=== PATIENT | male | born 1995 | race Two or more races ===

== ENCOUNTER 2024-12-15 15:57 | Emergency (ER) | payer MEDICAID, SELFPAY ==
[2024-12-15 16:31] VITALS: BP 118/77; PULSE 75; RESP 20; TEMP 37; O2SAT 98; BMI 29.5
--- NOTE | 2024-12-15 16:50 | XR_ITS ---
Examination: Tibia-Fibula, right , 2 views Technique: Tibia-fibula AP lateral 2 views Date and time of exam: December 15, 2024, 1741 hrs. Indications: Injury to the right lower leg yesterday, lower leg pain. Findings: No acute fracture. No dislocation. No foreign body Impression: No acute fracture.
--- NOTE | 2024-12-15 16:50 | XR_ITS ---
Examination: Right knee 3 views Technique: Knee AP, lateral, oblique 3 views Date and time of exam: December 14 9992024, 1741 hrs. Indications: Injury to the knee one day ago, knee pain. Findings: No fracture or dislocation. No foreign body Impression: No fracture or dislocation.
[2024-12-15] MEDS: HYDROcodone/APAP 5/325 TABLET 1 TAB PO (17:02)
[2024-12-15] MEDS: KETOROLAC INJ 60 MG/2 ML VIAL 30 MG IM (17:03)
--- NOTE | 2024-12-15 17:29 | PD.EDFALL ---
ED Fall Injury RME/HPI General Chief Complaint: Fall Stated Complaint: R KNEE PAIN/BRUISING S/P FALL Time Seen by Provider: 12/15/24 16:00 Arrival date/time: 12/15/24 15:57 Limitations: no limitations RME / HPI RME / HPI Narrative: 28-year-old male here for injury that he sustained yesterday while watching a baseball game. States was sitting on the bleachers and did not notice a the bleachers narrow down. These tarps were obstructing his view he shifted over to the right and ended up rolling. History of right knee trauma in the past with internal derangement. States that makes him more worried especially given the size of the bruise on his right inner leg and tenderness to the knee as well as tenderness to right lateral thigh. Able to walk but limping. No other injuries. No loss of consciousness. Related Data Previous Rx's ?Medication ?Instructions ?Recorded cyclobenzaprine 10 mg tablet 10 mg PO Q8HR #20 tabs 05/28/17 ibuprofen 600 mg tablet 600 mg PO Q6HR #30 tabs 05/28/17 Allergies Allergy/AdvReac Type Severity Reaction Status Date / Time No Known Allergies Allergy Verified 12/15/24 15:57 Review of Systems Review of Systems Systems Reviewed: All systems reviewed, normal except as documented Musculoskeletal Musculoskeletal: Reports as per HPI ED Exam General Limitations: Present no limitations General appearance: Present alert and in no apparent distress Eye Eye exam: Present normal appearance, PERRL and EOMI Respiratory Respiratory exam: Present normal lung sounds bilaterally Cardiovascular Cardiovascular exam: Present regular rate, normal rhythm and normal heart sounds Abdominal Exam Abdominal exam: Present soft and normal bowel sounds Extremities Exam Extremities exam: Present other (Right lateral thigh with ecchymosis and TTP right medial calf with greater than 6 cm area of ecchymosis and TTP right knee with TTP, limping gait) Back Exam Back exam: Present normal inspection and full ROM Skin Skin exam: Present warm, dry, intact and normal color Course Quality Measures none Orders Category Date Time Status Splint / Immobilizer STAT Care 12/15/24 17:57 Completed XR knee RT 3V Stat Exams 12/15/24 16:50 Completed XR tibia fibula RT 2V Stat Exams 12/15/24 16:50 Completed HYDROcodone*/APAP 5/325 [[place] 5/325] Med 12/15/24 16:50 Discontinued 1 tab PO X1 ONE Ketorolac Inj [Toradol Inj] Med 12/15/24 16:50 Discontinued 30 mg IM X1 ONE Vital Signs Vital signs: Vital Signs Temperature 98.6 F 12/15/24 16:31 Pulse Rate 75 12/15/24 16:31 Respiratory Rate 20 12/15/24 16:31 Blood Pressure 118/77 12/15/24 16:31 Pulse Oximetry (%) 98 12/15/24 16:31 Oxygen Delivery Method Oxy Mask 12/15/24 16:31 PROCEDURES: Splint Fabrication: Pre-Fabricated Type: Other (right knee immobilizer ) Reason for Splint: Pain Management Site condition: Bruised Circulation Distal to Splint: Yes Movement Distal to Splint: Yes Senation Distal to Splint: Yes Tolerance: Tolerates Well Fall Patient data External records reviewed:: [facility] previous records Clinical information provided by:: patient Social determinants that could affect healthcare access:: other (specify) Patient has the following chronic illnesses:: History of right knee injury How is presenting disease/condition affected by chronic disease/condition?: exacerbated by Evaluation data The following diagnostics were reviewed and interpreted by me:: radiology exam(s) Lab and/or radiology exams considered but not ordered:: us doppler right lower ext, however injury less than 24hrs unlikely to change course of tx today Interpretation Summary: no fx no dislocation of knee or tib/fib Medications / Prescriptions Medications or Prescriptions considered but not ordered:: narcotics consider but opted for nsaids due to type of injury Medication administrations:: Medication Administration History Discontinued Medications Hydrocodone Bitart/Acetaminophen (Hydrocodone/Apap 5/325 Tablet) 1 tab PO X1 ONE Stop: 12/15/24 16:51 Last Admin: 12/15/24 17:02 Dose: 1 tab Documented By: HERBERT Ketorolac Tromethamine (Ketorolac Inj 60 Mg/2 Ml Vial) 30 mg IM X1 ONE Stop: 12/15/24 16:51 Last Admin: 12/15/24 17:03 Dose: 30 mg Documented By: HERBERT see above Consultations Consultation(s) initiated? (list below): No Diagnosis Fall Differential Diagnosis: dislocation of shoulder region, fracture of wrist, compression fracture and other (tib/fib fx, dvt) Most likely diagnosis given after review of the tests above:: right knee contusion right lower ext contusions Admission Indicated Admission indicated?: not indicated Admission Request Was there a request for admission?: No Disposition Plan Disposition Plan: Discharge Discharge Attestation Discharge Attestation: The patient and all family members were given an opportunity to ask questions and understood the discharge instructions. Discharge instructions specifically effects, indications for sooner follow up or return to the emergency department, and the expected course of current diagnosis. Patient condition: Stable Discharge Plan Plan Patient Disposition: HOME (Self Care) Discharge Disposition comment: f/u with pcp in 2-3days Prescriptions/Referrals Prescriptions/Med Rec: No Action ibuprofen 600 mg tablet 600 mg PO Q6HR Qty: 30 0RF cyclobenzaprine 10 mg tablet 10 mg PO Q8HR Qty: 20 0RF Referrals: No Primary/Family,Physician [Primary Care Provider] - In 1 week Problem List Clinical Impression: Contusion of leg, right, multiple sites, Ecchymosis Patient/Caregiver Discharge Instructions Education Materials: Bruises (Contusions), ED Contusion, Lower Extremity Print Language: [place] Stand Alone Forms: Katharine Award Info., Work/School Release, Patient Portal Info Letter PA/INCLUSION INTERN Supervising Physician PA/INCLUSION INTERN Supervising Physician: Dr. ro
== END 2024-12-15 18:13 | disposition home or self-care (01) ==
PROVIDERS: Emergency Provider Family Medicine
DX: S80.11XA Contusion of right lower leg, initial encounter (principal); X58.XXXA Exposure to other specified factors, initial encounter
CPT/HCPCS: 73562; 73590; 96372; 99283; J1885; A9270

== ENCOUNTER 2024-12-21 10:28 | Emergency (ER) | payer MEDICAID, SELFPAY ==
[2024-12-21 10:30] VITALS: BMI 28.7
[2024-12-21 11:12] VITALS: BP 137/78; PULSE 71; RESP 18; TEMP 36.6; O2SAT 98
--- NOTE | 2024-12-21 11:19 | XR_ITS ---
Examination: Duplex scan of the lower extremity, unilateral right Date and time of exam: December 21, T2 thousand 25, 11:30 AM. Indications: Right leg swelling and pain beginning 8 days ago. Technique: Duplex scan of the extremity veins using B-mode/grayscale imaging and Doppler spectral analysis and color flow Attention is directed to internal echogenicity, compression and augmentation involving these veins, color flow assessment, spectral analysis Findings: Major deep venous structures in the extremity demonstrate normal course and caliber. There is no evidence of deep vein thrombosis. Normal color flow and spectral analysis Impression: Negative for DVT..
--- NOTE | 2024-12-21 14:12 | PD.EDLOWEX ---
Lower Extremity Injury RME/HPI General Chief Complaint: Extremity Injury, Lower Stated Complaint: BRUISING/SWELLING TO RIGHT S/P FALL 8 DAYS AGO Time Seen by Provider: 12/21/24 11:11 Arrival date/time: 12/21/24 10:28 This is a 28-year-old male that comes in to the ED with complaints of leg swelling. Pt states this happened while watching a baseball game. States was sitting on the bleachers and did not notice a the bleachers narrow down. These tarps were obstructing his view he shifted over to the right and ended up rolling. History of right knee trauma in the past with internal derangement. No other injuries. No loss of consciousness. Pt had x rays done 12/15/24 and were negative to for an acute fracture, he is just concerned he may have a blood clot now. Pt ambulatory on leg. Related Data Previous Rx's ?Medication ?Instructions ?Recorded cyclobenzaprine 10 mg tablet 10 mg PO Q8HR #20 tabs 05/28/17 ibuprofen 600 mg tablet 600 mg PO Q6HR #30 tabs 05/28/17 Allergies Allergy/AdvReac Type Severity Reaction Status Date / Time No Known Allergies Allergy Verified 12/21/24 10:31 Review of Systems Review of Systems Systems Reviewed: All systems reviewed, normal except as documented Past Medical History Past Medical History Comments PMH COMMENT: denies ED Exam Narrative Physical exam: VITAL SIGNS: Reviewed. GENERAL APPEARANCE: Alert and interactive, follows commands, no acute distress HEAD AND FACE: Non-traumatic. ENT: PERRL, conjuctiva pink and clear, eyelid no trauma, Mucous membrane moist. NECK: Supple, nontender, no nuchal rigidity. CHEST: No tenderness, no crepitus, no paradoxical movement, no retractions. LUNGS: breathing even and unlabored HEART: Regular rate, cap refill less than 2 seconds ABDOMEN: Soft, nondistended, no guarding, nontender, no rebound, no masses, NEUROLOGICAL: Gross motor function intact sensory function intact, Appropriate for age. MUSCULOSKELETAL: low back nontender, full range of motion. EXTREMITIES: Distal neurovascular status intact bilateral foot SKIN: Color pink, dry, bruising and mild swelling to right lower extremity in different stages of healing. Full range of motion sensation intact. Good pulses Course Quality Measures none Orders Category Date Time Status US venous doppler LE RT Stat Exams 12/21/24 11:19 Completed Vital Signs Vital signs: Vital Signs Temperature 97.9 F 12/21/24 11:12 Pulse Rate 71 12/21/24 11:12 Respiratory Rate 18 12/21/24 11:12 Blood Pressure 137/78 H 12/21/24 11:12 Pulse Oximetry (%) 98 12/21/24 11:12 Oxygen Delivery Method Room Air 12/21/24 11:12 Extremity Injury, Lower MDM Narrative MDM Narrative:: Venous doppler: Findings: Major deep venous structures in the extremity demonstrate normal course and caliber. There is no evidence of deep vein thrombosis. Normal color flow and spectral analysis Impression: Negative for DVT.. I went to go get patient from the waiting room to give him the results of the Doppler study and he was not there. Dragon dictation: Although this document has been carefully reviewed, there may still be some phonetic and other typographical errors. These errors are purely grammatical due to imperfections in the software program and should not be construed in any way to compromise the substance of the patient's medical care during this visit. Patient data External records reviewed:: [facility] previous records Clinical information provided by:: patient Social determinants that could affect healthcare access:: none Patient has the following chronic illnesses:: none How is presenting disease/condition affected by chronic disease/condition?: no chronic disease Evaluation data The following diagnostics were reviewed and interpreted by me:: radiology exam(s) Lab and/or radiology exams considered but not ordered:: none Interpretation Summary: see note Medications / Prescriptions Medications or Prescriptions considered but not ordered:: none Medication administrations:: see mar Consultations Consultation(s) initiated? (list below): No Diagnosis Extremity Injury, Lower Differential Diagnosis: other (dvt, contusion, leg swelling ) Most likely diagnosis given after review of the tests above:: contusion Admission Indicated Admission indicated?: not indicated Admission Request Was there a request for admission?: No Disposition Plan Disposition Plan: Discharge Discharge Attestation Discharge Attestation: The patient and all family members were given an opportunity to ask questions and understood the discharge instructions. Discharge instructions specifically effects, indications for sooner follow up or return to the emergency department, and the expected course of current diagnosis. Patient condition: Stable Discharge Plan Plan Patient Disposition: Elopement Patient condition on transfer: Stable Prescriptions/Referrals Prescriptions/Med Rec: No Action ibuprofen 600 mg tablet 600 mg PO Q6HR Qty: 30 0RF cyclobenzaprine 10 mg tablet 10 mg PO Q8HR Qty: 20 0RF Referrals: No Primary/Family,Physician [Primary Care Provider] - In 1 week Problem List Clinical Impression: Contusion of lower limb, right Patient/Caregiver Discharge Instructions Discharge Activity: activity as tolerated Education Materials: Bruises (Contusions) Additional Instructions: Follow up with primary provider in 1-2 days. Come back to ED if symptoms change or worsen Print Language: [place]z PA/ENERGY EFFICIENCY ENGINEER Supervising Physician PA/ENERGY EFFICIENCY ENGINEER Supervising Physician: [email or web address]
--- NOTE | 2024-12-21 14:29 | PC.NURSE ---
PT CALLED BACK @[id number]. NO RESPONSE FROM LOBBY OR OUTSIDE
--- NOTE | 2024-12-21 14:53 | PC.LAC ---
PT CALLED BACK X2 @6050. NO RESPONSE FROM LOBBY OR OUTSIDE
--- NOTE | 2024-12-21 15:00 | PC.NURSE ---
CALLED FROM LOBBY AND NO ANSWER
--- NOTE | 2024-12-21 15:00 | PC.NURSE ---
PT CALLED BACK @0818. NO RESPONSE X2 FROM LOBBY OR OUTSIDE
--- NOTE | 2024-12-21 15:04 | PC.NURSE ---
CALLED FROM LOBBY AND NO ANSWER. PT NOT FOUND INSIDE THE E.D. OR OUTSIDE
== END 2024-12-21 15:04 | disposition left against medical advice (07) ==
PROVIDERS: Emergency Provider Emergency Medicine
DX: S80.11XA Contusion of right lower leg, initial encounter (principal); W19.XXXA Unspecified fall, initial encounter; Z53.21 Procedure and treatment not carried out due to patient leaving prior to being seen by health care provider
CPT/HCPCS: 93971; 99283